=== PATIENT | male | born 1950 | race Caucasian/White ===

== ENCOUNTER 2017-03-13 15:26 | Inpatient (IN) | payer OTHER, MEDICARE ==
[~2017-03-13] VITALS: Ht 182.9 cm; Wt 93.7 kg
[2017-03-13 15:33] VITALS: BP 183/95; PULSE 86; RESP 20; TEMP 98.9; O2SAT 95
[2017-03-13 17:12] LABS: AUTOMATED NEUTROPHIL # 4.7 TH/MM3 (1.8-7.7); BASOPHIL % 0.5 % (0.0-2.0); EOSINOPHIL # 0.1 TH/MM3 (0-0.4); EOSINOPHIL % 0.8 % (0.0-4.0); HEMATOCRIT 47.5 % (39.0-51.0); LYMPHOCYTE # 1.9 TH/MM3 (1.0-4.8); MEAN CELL VOLUME 84.6 FL (80.0-100.0); MEAN CORPUSCULAR HEMOGLOBIN 28.8 PG (27.0-34.0); MEAN CORPUSCULAR HGB CONC 34.1 % (32.0-36.0); MONO % 9.6 % (0.0-8.0); NEUT % 63.1 % (16.0-70.0); PLATELET COUNT 95 TH/MM3 (150-450); RED BLOOD COUNT 5.61 MIL/MM3 (4.50-5.90); RED CELL DISTRIBUTION WIDTH 14.3 % (11.6-17.2); WHITE BLOOD COUNT 7.4 TH/MM3 (4.0-11.0)
[2017-03-13 17:17] LABS: APTT (PATIENT) 25.5 SEC (24.3-30.1); PROTHROMBIN TIME - PATIENT 11.5 SEC (9.8-11.6)
[2017-03-13 17:27] LABS: ALT (GPT) 80 U/L (12-78); ANION GAP 10 MEQ/L (5-15); AST (GOT) 65 U/L (15-37); BICARBONATE 23.8 MEQ/L (21.0-32.0); BLOOD UREA NITROGEN 15 MG/DL (7-18); CHLORIDE 104 MEQ/L (98-107); GLOMERULAR FILTRATION RATE 49 ML/MIN (>89); POTASSIUM 4.4 MEQ/L (3.5-5.1); SODIUM (NA) 138 MEQ/L (136-145)
[2017-03-13 17:29] LABS: ALKALINE PHOSPHATASE 45 U/L (45-117); TOTAL BILIRUBIN ADULT 0.4 MG/DL (0.2-1.0)
[2017-03-13 17:30] LABS: ALCOHOL LESS THAN 3 MG/DL (0-5)
[2017-03-13 17:31] LABS: HEMO FLAGS AUTO DIFF
[2017-03-13 17:32] LABS: ACETAMINOPHEN LESS THAN 2.0 MCG/ML (10.0-30.0)
--- NOTE | 2017-03-13 17:36 | PD ---
HPI Chief Complaint: Psychiatric Symptoms Time Seen by Provider: 17:32 Travel History International Travel<30 days: No Contact w/Intl Traveler<30days: No Traveled to known affect area: No History of Present Illness HPI 66-year-old male that presents to the ED for eval of psychiatric illness. Patient was Denise acted by police after apparently is an email to his insurance company stating that he was depressed and he needed help and he mentioned something or not wanting to live anymore and they called the police. Patient was Denise acted by police. No other medical issues. He does have history depression takes medications for it but his been out of them. He says that he is in counseling but doesn't seem to be helping. He states is a history of high blood pressure, high cholesterol, diabetes. Takes medications for them. States that he has no suicidal or homicidal ideation. Per patient he regrets what he said he did not know he was given a DT this. He denies any other medical issues. He states that his been dealing with depression all his life. PFSH Past Medical History Cardiovascular Problems: Yes (stents) Diabetes: Yes Social History Alcohol Use: No Tobacco Use: Yes Substance Use: No Review of Systems Except as stated in HPI: all other systems reviewed are Neg Physical Exam Narrative GENERAL: SKIN: Warm and dry. HEAD: Atraumatic. Normocephalic. EYES: Pupils equal and round. No scleral icterus. No injection or drainage. ENT: No nasal bleeding or discharge. Mucous membranes pink and moist. Tongue is midline. No uvula deviation. NECK: Trachea midline. No JVD. CARDIOVASCULAR: Regular rate and rhythm. No murmurs, S3, S4. RESPIRATORY: No accessory muscle use. Clear to auscultation. Breath sounds equal bilaterally. GASTROINTESTINAL: Abdomen soft, non-tender, nondistended. Hepatic and splenic margins not palpable. MUSCULOSKELETAL: Extremities without clubbing, cyanosis, or edema. No obvious deformities. Full range of motion of the upper and lower extremities bilaterally. 2+ pulses bilaterally. NEUROLOGICAL: Awake and alert. No obvious cranial nerve deficits. Motor grossly within normal limits. Five out of 5 muscle strength in the arms and legs. Normal speech. PSYCHIATRIC: Appropriate mood and affect; insight and judgment normal. Data Data Last Documented VS Vital Signs Date Time Temp Pulse Resp B/P Pulse Ox O2 Delivery O2 Flow Rate FiO2 03/13/17 15:33 98.9 86 20 183/95 95 Orders Complete Blood Count With Diff (03/13/17 16:03) Comprehensive Metabolic Panel (03/13/17 16:03) Prothrombin Time / Inr (Pt) (03/13/17 16:03) Act Partial Throm Time (Ptt) (03/13/17 16:03) Psych Screen (03/13/17 16:03) Drug Screen, Random Urine (03/13/17 16:03) Alcohol (Ethanol) (03/13/17 16:03) Salicylates (Aspirin) (03/13/17 16:03) Tylenol (Acetaminophen) (03/13/17 16:03) Labs Laboratory Tests Test 03/13/17 03/13/17 16:45 16:50 Prothrombin Time 11.5 SEC Prothromb Time International 1.0 RATIO Ratio Activated Partial 25.5 SEC Thromboplast Time Sodium Level 138 MEQ/L Potassium Level 4.4 MEQ/L Chloride Level 104 MEQ/L Carbon Dioxide Level 23.8 MEQ/L Anion Gap 10 MEQ/L Blood Urea Nitrogen 15 MG/DL Creatinine 1.44 MG/DL Estimat Glomerular Filtration 49 ML/MIN Rate Random Glucose 200 MG/DL Calcium Level 9.8 MG/DL Total Bilirubin 0.4 MG/DL Aspartate Amino Transf 65 U/L (AST/SGOT) Alanine Aminotransferase 80 U/L (ALT/SGPT) Alkaline Phosphatase 45 U/L Total Protein 7.7 GM/DL Albumin 3.7 GM/DL Salicylates Level LESS THAN 1.7 MG/DL Ethyl Alcohol Level LESS THAN 3 MG/DL Urine Opiates Screen NEG Urine Barbiturates Screen NEG Urine Amphetamines Screen NEG Urine Benzodiazepines Screen NEG Urine Cocaine Screen NEG Urine Cannabinoids Screen POS MDM Medical Decision Making Medical Screen Exam Complete: Yes Emergency Medical Condition: Yes Medical Record Reviewed: Yes Interpretation(s) CBC & BMP Diagram 03/13/17 16:45 Coags within normal limits. Tox positive for cannabinoids Differential Diagnosis Depression versus suicidal ideation versus anxiety versus adjustment disorder versus mood disorder versus bipolar disorder versus schizophrenia versus paranoid disorder versus psychosis versus substance abuse versus alcohol abuse versus alcohol induced psychosis versus homicidality addition versus cutting versus personality disorder Narrative Course 66-year-old male that presents to the ED for evaluation of Walker act. Patient was properly examined and was found to have signs and symptoms consistent appears to be depression. No signs of acute medical distress. Patient will be medically cleared. Okay to be seen by psych. Labs were drawn. Mental health screening was discussed with the patient. Diagnosis Primary Impression: Depression Qualified Code: F32.1 - Moderate single current episode of major depressive disorder Benny Gonzalez Mar 13, 2017 17:36
[2017-03-13 18:18] VITALS: BP 176/87; PULSE 103; RESP 18; TEMP 98.6; O2SAT 96
[2017-03-13] MEDS ORDERED: FISH1000 PO (18:26)
[2017-03-13] MEDS ORDERED: ATOR40TA16 PO (18:26)
[2017-03-13] MEDS ORDERED: ATEN50TA PO (18:26)
[2017-03-13] MEDS ORDERED: ASPI81CH CHEW (18:26)
[2017-03-13] MEDS ORDERED: LEVO25TA4 PO (18:26)
[2017-03-13] MEDS ORDERED: ENAL5TAB PO (18:26)
[2017-03-13] MEDS ORDERED: METF500T PO (18:26)
[2017-03-13] MEDS ORDERED: FENO1TAB46 PO (18:26)
[2017-03-13 18:30] LABS: BASOPHILS 1 % (0-2); EOSINOPHILS 1 % (0-4); METAMYELOCYTES 1 % (0-1); NEUTROPHIL # MANUAL DIFF 4.8 TH/MM3 (1.8-7.7); POLYS (SEG NEUTROPHILS) 64 % (16-70); WBC DIFF SAMPLE 100
[2017-03-13 18:31] LABS: PLATELET ESTIMATE SMEAR LOW (NORMAL); PLATELET MORPHOLOGY ENLARGED (NORMAL)
[2017-03-13 18:32] LABS: SCAN/DIFF FINAL DIFF MANUAL
[2017-03-13 19:55] VITALS: BP 152/85; PULSE 76; RESP 18; O2SAT 97
[2017-03-13] MEDS ORDERED: diphenhydrAMINE HCL 50 MG CAP PO PRN (23:15)
[2017-03-13 23:28] VITALS: BP 148/87; PULSE 78; RESP 19; O2SAT 98
[2017-03-13] MEDS ORDERED: ACETAMINOPHEN 325 MG TAB PO PRN (23:30)
[2017-03-13] MEDS ORDERED: LORazepam 2 MG/ML VIAL - age > 65 yrs IM PRN (23:30)
[2017-03-13] MEDS ORDERED: ALUMINUM/MAGNESIUM/SIMETH 30 ML CUP PO PRN (23:30)
[2017-03-13] MEDS ORDERED: diphenhydrAMINE HCL 50 MG/ML VIAL IM PRN (23:30)
[2017-03-13] MEDS ORDERED: MAGNESIUM HYDROXIDE SUSP 30 ML CUP PO PRN (23:30)
[2017-03-13] MEDS ORDERED: traZODone HCL 50 MG TAB PO PRN (23:30)
[2017-03-13] MEDS ORDERED: diphenhydrAMINE HCL 50 MG/ML VIAL - HS PRN IM (23:30)
[2017-03-14 00:30] VITALS: BP 172/90; PULSE 72; RESP 18; TEMP 98.2
[2017-03-14] MEDS: LORazepam 0.5 MG TAB age > 65 yrs PO PRN ×2 (00:41→21:14)
[2017-03-14] MEDS: diphenhydrAMINE HCL 50 MG CAP - HS PRN PO (00:41)
[2017-03-14 05:30] VITALS: BP 136/82; PULSE 71; RESP 18; TEMP 97.8; O2SAT 97
[2017-03-14] MEDS: LEVOTHYROXINE SODIUM 25 MCG TAB PO SCH (06:00)
[2017-03-14] MEDS: FENOFIBRATE 48 MG TAB PO SCH (08:24)
[2017-03-14] MEDS: metFORMIN HCL 500 MG TAB PO SCH ×3 (08:25→18:02)
[2017-03-14] MEDS: ASPIRIN 81 MG CHEW TAB PO SCH (08:25)
[2017-03-14] MEDS: ATENOLOL 50 MG TAB PO SCH (08:25)
[2017-03-14] MEDS: ENALAPRIL MALEATE 5 MG TAB PO SCH (08:25)
[2017-03-14] MEDS: NICOTINE 21 MG/24 HR PATCH T-DERMAL SCH (08:26)
[2017-03-14 12:26] LABS: AUTOMATED NEUTROPHIL # 6.2 TH/MM3 (1.8-7.7); BASOPHIL % 0.3 % (0.0-2.0); EOSINOPHIL # 0.1 TH/MM3 (0-0.4); EOSINOPHIL % 0.6 % (0.0-4.0); HEMATOCRIT 48.8 % (39.0-51.0); HEMO FLAGS DIFF FINAL; LYMPH % 28.9 % (9.0-44.0); LYMPHOCYTE # 2.9 TH/MM3 (1.0-4.8); MEAN CELL VOLUME 84.8 FL (80.0-100.0); MEAN CORPUSCULAR HEMOGLOBIN 29.1 PG (27.0-34.0); MEAN CORPUSCULAR HGB CONC 34.3 % (32.0-36.0); MONO % 8.1 % (0.0-8.0); NEUT % 62.1 % (16.0-70.0); PLATELET COUNT 113 TH/MM3 (150-450); RED BLOOD COUNT 5.75 MIL/MM3 (4.50-5.90); RED CELL DISTRIBUTION WIDTH 14.2 % (11.6-17.2); WHITE BLOOD COUNT 9.9 TH/MM3 (4.0-11.0)
[2017-03-14 12:51] LABS: ANION GAP 10 MEQ/L (5-15); BICARBONATE 27.8 MEQ/L (21.0-32.0); BLOOD UREA NITROGEN 16 MG/DL (7-18); CHLORIDE 101 MEQ/L (98-107); GLOMERULAR FILTRATION RATE 51 ML/MIN (>89); SODIUM (NA) 139 MEQ/L (136-145)
[2017-03-14 12:53] LABS: HDL CHOLESTEROL 36.3 MG/DL (40.0-60.0); LDL CHOLESTEROL 52 MG/DL (0-99)
[2017-03-14] MEDS: PARoxetine HCL 20 MG TAB PO SCH (14:52)
[2017-03-14 17:07] LABS: HEMOGLOBIN A1a 1.1 %; HEMOGLOBIN A1b 1.3 %; HEMOGLOBIN Ao 80.4 %; HEMOGLOBIN F 1.1 %; HEMOGLOBIN LA1C 3.1 %; HEMOGLOBIN P3 4.6 %
[2017-03-14 18:15] VITALS: BP 148/78; PULSE 61; RESP 16; TEMP 98.1; O2SAT 95
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
[2017-03-14] MEDS: REMOVE OLD NICOTINE PATCH T-DERMAL SCH (21:00)
[2017-03-14] MEDS: ATORVASTATIN 40 MG TAB PO SCH (21:14)
[2017-03-15 05:02] VITALS: BP 154/80; PULSE 69; RESP 16; TEMP 98
[2017-03-15] MEDS: LEVOTHYROXINE SODIUM 25 MCG TAB PO SCH (06:15)
[2017-03-15] MEDS: NICOTINE 21 MG/24 HR PATCH T-DERMAL SCH (09:00)
[2017-03-15] MEDS: ASPIRIN 81 MG CHEW TAB PO SCH (09:03)
[2017-03-15] MEDS: ATENOLOL 50 MG TAB PO SCH (09:03)
[2017-03-15] MEDS: metFORMIN HCL 500 MG TAB PO SCH ×3 (09:03→17:47)
[2017-03-15] MEDS: FENOFIBRATE 48 MG TAB PO SCH (09:03)
[2017-03-15] MEDS: PARoxetine HCL 20 MG TAB PO SCH (09:03)
[2017-03-15] MEDS: ENALAPRIL MALEATE 5 MG TAB PO SCH (09:03)
--- NOTE | 2017-03-15 16:55 | HHI.PYPN ---
Subjective Remarks Patient seen for follow-up chart reviewed. Patient found sitting in hospital bed, cooperative interview. Patient states that he feels much less anxious since yesterday but continues to have a little bit of "feeling of low in my stomach but not like before". Patient states that he is looking forward to Saturday with a possible discharge and he states he feels much better restarting his medications and. Motivated to continue outpatient follow-up. Patient states that he has been feeling a little bored while on the unit but has been trying to attend groups, had gone outside for activities, and mentions that he plans on starting to invest in his interests and hobbies once he is back home. Patient at this time denies any SI, HI, AVH or delusions. Review of Systems Except as stated in HPI: all other systems reviewed are Neg Objective Alert: Yes [place]: Person, Place, Date, Situation Mood: Calm Affect: Appropriate Memory Intact: Comment (fair) Hallucinations: Other (denies) Delusions: No Delusion Type: Other (denies) Suicidal: Ideation (denies) Homicidal: Ideation (denies) Insight/Judgment Fair insight, impulse control and judgment Labs Labs reviewed. Laboratory Tests Test 03/13/17 03/13/17 03/14/17 16:45 16:50 11:38 Platelet Count 95 TH/MM3 113 TH/MM3 (150-450) (150-450) Mean Platelet Volume 11.3 FL 11.1 FL (7.0-11.0) (7.0-11.0) Monocytes (%) (Auto) 9.6 % (0.0-8.0) 8.1 % (0.0-8.0) Platelet Estimate LOW (NORMAL) Platelet Morphology Comment ENLARGED (NORMAL) Creatinine 1.44 MG/DL 1.39 MG/DL (0.60-1.30) (0.60-1.30) Estimat Glomerular Filtration 49 ML/MIN (>89) 51 ML/MIN (>89) Rate Random Glucose 200 MG/DL 210 MG/DL (74-106) (74-106) Aspartate Amino Transf 65 U/L (15-37) (AST/SGOT) Alanine Aminotransferase 80 U/L (12-78) (ALT/SGPT) Salicylates Level LESS THAN 1.7 MG/DL (2.8-20.0) Acetaminophen Level LESS THAN 2.0 MCG/ML (10.0-30.0) Urine Cannabinoids Screen POS (NEG) Hemoglobin A1c 7.9 % (4.3-6.0) Triglycerides Level 317 MG/DL (42-150) HDL Cholesterol 36.3 MG/DL (40.0-60.0) Vitals/IOs Vital Signs Date Time Temp Pulse Resp B/P Pulse Ox O2 Delivery O2 Flow Rate FiO2 03/15/17 05:02 98.0 69 16 154/80 03/14/17 18:15 95 03/13/17 23:28 Room Air Intake and Output 03/14/17 03/14/17 03/15/17 08:00 16:00 00:00 Intake Total 480 ml Balance 480 ml Assessment & Plan Problem List: (1) Depression ICD Code: F32.9 Assessment & Plan Patient at this time continues to be noted with improved mood yet continues reports some depression. Patient engaging in activities and groups while on the unit, reports tolerating medication well with no adverse drug reactions. Continue current treatment for now. Recommendations as per primary medical team. Discharge planning in progress Justification for Cont. Inpt. Patient at risk for further decompensation if at lower level of care. Discharge Planning In progress Problem Qualifiers (1) Depression: Qualified Code: F32.1 - Moderate single current episode of major depressive disorder Milan Mccrary MD Mar 15, 2017 16:55
[2017-03-15 20:23] VITALS: TEMP 98.1
[2017-03-15] MEDS: REMOVE OLD NICOTINE PATCH T-DERMAL SCH (21:00)
[2017-03-15] MEDS: ATORVASTATIN 40 MG TAB PO SCH (21:32)
[2017-03-15] MEDS: diphenhydrAMINE HCL 50 MG CAP - HS PRN PO (21:32)
[2017-03-15] MEDS: LORazepam 0.5 MG TAB age > 65 yrs PO PRN (21:37)
[2017-03-16 05:19] VITALS: BP 148/69; PULSE 68; RESP 17; TEMP 98; O2SAT 96
[2017-03-16] MEDS: LEVOTHYROXINE SODIUM 25 MCG TAB PO SCH (06:19)
[2017-03-16] MEDS: NICOTINE 21 MG/24 HR PATCH T-DERMAL SCH (09:00)
[2017-03-16] MEDS: FENOFIBRATE 48 MG TAB PO SCH (09:15)
[2017-03-16] MEDS: PARoxetine HCL 20 MG TAB PO SCH (09:15)
[2017-03-16] MEDS: ENALAPRIL MALEATE 5 MG TAB PO SCH (09:15)
[2017-03-16] MEDS: ATENOLOL 50 MG TAB PO SCH (09:15)
[2017-03-16] MEDS: metFORMIN HCL 500 MG TAB PO SCH ×3 (09:15→18:48)
[2017-03-16] MEDS: ASPIRIN 81 MG CHEW TAB PO SCH (09:15)
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
[2017-03-16 17:00] VITALS: BP 140/88; PULSE 74; RESP 18; TEMP 98.2; O2SAT 100
[2017-03-16] MEDS: ATORVASTATIN 40 MG TAB PO SCH (20:41)
[2017-03-16] MEDS: diphenhydrAMINE HCL 50 MG CAP - HS PRN PO (20:41)
[2017-03-16] MEDS: LORazepam 0.5 MG TAB age > 65 yrs PO PRN (20:41)
[2017-03-16] MEDS: REMOVE OLD NICOTINE PATCH T-DERMAL SCH (20:43)
[2017-03-17] MEDS: LEVOTHYROXINE SODIUM 25 MCG TAB PO SCH (05:51)
[2017-03-17 07:12] VITALS: BP 131/71; PULSE 68; RESP 18; O2SAT 96
[2017-03-17] MEDS: NICOTINE 21 MG/24 HR PATCH T-DERMAL SCH (09:00)
[2017-03-17] MEDS: PARoxetine HCL 20 MG TAB PO SCH (09:17)
[2017-03-17] MEDS: ASPIRIN 81 MG CHEW TAB PO SCH (09:17)
[2017-03-17] MEDS: FENOFIBRATE 48 MG TAB PO SCH (09:17)
[2017-03-17] MEDS: ENALAPRIL MALEATE 5 MG TAB PO SCH (09:17)
[2017-03-17] MEDS: ATENOLOL 50 MG TAB PO SCH (09:17)
[2017-03-17] MEDS: metFORMIN HCL 500 MG TAB PO SCH ×3 (09:17→16:59)
--- NOTE | 2017-03-17 16:54 | HHI.PYPN ---
Subjective Remarks Patient was seen and case discussed with nursing. Patient continues to claim that this admission was a misunderstanding and he was not suicidal. He is bright and cheerful during the interview. Notes an improvement in mood. Is looking forward to discharge and his appointment with this therapist on Saturday. Denies suicidal ideation intent or plan. Social behaving well on the unit. Eating and sleeping well Objective Alert: Yes [place]: Person, Place, Date, Situation Mood: Calm Affect: Appropriate Memory Intact: Comment (fair) Hallucinations: Other (denies) Delusions: No Delusion Type: Other (denies) Suicidal: Ideation (denies) Homicidal: Ideation (denies) Insight/Judgment Improving Vitals/IOs Vital Signs Date Time Temp Pulse Resp B/P (MAP) Pulse Ox O2 Delivery O2 Flow Rate FiO2 03/17/17 07:12 68 18 131/71 (91) 96 03/16/17 17:00 98.2 03/13/17 23:28 Room Air Assessment & Plan Problem List: (1) Depression ICD Codes: F32.9 - Depression Status: Acute Assessment & Plan Continue current treatment plan Justification for Cont. Inpt. Patient would decompensate in a less restrictive setting Problem Qualifiers (1) Depression: Theodore Martines DO Mar 17, 2017 16:54
[2017-03-17 18:35] VITALS: BP 173/88; PULSE 71; RESP 17; TEMP 97.7; O2SAT 98
[2017-03-17] MEDS: ATORVASTATIN 40 MG TAB PO SCH (20:31)
[2017-03-17] MEDS: REMOVE OLD NICOTINE PATCH T-DERMAL SCH (21:00)
[2017-03-17] MEDS: diphenhydrAMINE HCL 50 MG CAP - HS PRN PO (21:15)
[2017-03-17] MEDS: LORazepam 0.5 MG TAB age > 65 yrs PO PRN (21:15)
[2017-03-18] MEDS: LEVOTHYROXINE SODIUM 25 MCG TAB PO SCH (05:23)
[2017-03-18 06:05] VITALS: BP 131/67; PULSE 67; RESP 17; TEMP 98; O2SAT 100
[2017-03-18 08:30] VITALS: BP 139/88; PULSE 89
[2017-03-18] MEDS: ASPIRIN 81 MG CHEW TAB PO SCH (08:42)
[2017-03-18] MEDS: ATENOLOL 50 MG TAB PO SCH (08:42)
[2017-03-18] MEDS: metFORMIN HCL 500 MG TAB PO SCH (08:42)
[2017-03-18] MEDS: PARoxetine HCL 20 MG TAB PO SCH (08:42)
[2017-03-18] MEDS: FENOFIBRATE 48 MG TAB PO SCH (08:42)
[2017-03-18] MEDS: ENALAPRIL MALEATE 5 MG TAB PO SCH (08:42)
[2017-03-18] MEDS: NICOTINE 21 MG/24 HR PATCH T-DERMAL SCH (08:44)
[2017-03-18] MEDS ORDERED: ATOR40TA16 PO (09:08)
[2017-03-18] MEDS ORDERED: PARO20TA2 PO (09:08)
[2017-03-18] MEDS ORDERED: METF500 PO (09:08)
[2017-03-18] MEDS ORDERED: ENAL5TAB PO (09:08)
[2017-03-18] MEDS ORDERED: ATEN50TA PO (09:08)
[2017-03-18] MEDS ORDERED: FENO48TA PO (09:08)
[2017-03-18] MEDS ORDERED: FISH1000 PO (09:08)
[2017-03-18] MEDS ORDERED: LEVO25TA4 PO (09:08)
[2017-03-18] MEDS ORDERED: ASPI81CH25 PO (09:08)
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
== END 2017-03-18 11:25 | disposition home or self-care (01) | DRG 885 ==
LOC: NEDAMB 15:26 → NEDA 21:43 → H260 03-14 00:05
PROVIDERS: ADMIT Student in an Organized Health Care Education/Training Program; ATTEND Student in an Organized Health Care Education/Training Program
DX: F32.1 Major depressive disorder, single episode, moderate (principal); E11.9 Type 2 diabetes mellitus without complications; I10 Essential (primary) hypertension; I25.10 Atherosclerotic heart disease of native coronary artery without angina pectoris; E78.00 Pure hypercholesterolemia, unspecified; Z95.5 Presence of coronary angioplasty implant and graft; Z72.0 Tobacco use; Z79.84 Long term (current) use of oral hypoglycemic drugs
CPT/HCPCS: 80048; 80053; 80061; 80307; 83036; 85007; 85025; 85027; 85610; 85730; 99285; Q0163